=== PATIENT | male | born 1965 | race African-American/Black ===

== ENCOUNTER 2019-10-06 20:26 | Inpatient (IN) | payer OTHER ==
[~2019-10-06] VITALS: Ht 165.1 cm; Wt 57.2 kg
[2019-10-06] MEDS ORDERED: LEVETIRACETAM 1000MG/100ML 100 ML IV ONE (21:00)
[2019-10-06] MEDS ORDERED: SODIUM CHLORIDE 0.9% 1,000 ML IV ONE (21:00)
[2019-10-06] MEDS ORDERED: LORAZEPAM 2MG/ML CPJ IV ONE ×2 (21:00→21:30)
[2019-10-06] MEDS ORDERED: LORAZEPAM 2MG/ML CPJ ONE ×2 (21:06→21:31)
[2019-10-06] MEDS ORDERED: PROPOFOL 200MG/20ML VIAL IV ONE (21:15)
[2019-10-06] MEDS ORDERED: MIDAZOLAM HCL 50 MG in DEXTROSE 5% WATER 40 ML IV ONE ×2 (21:30→22:00)
[2019-10-06 23:03] LABS: BASOPHILS % 0.7 % (0.0-2.0); EOSINOPHILS % 1.4 % (0.0-5.0); HEMATOCRIT. 44.9 % (42.0-52.0); HEMOGLOBIN. 15.4 g/dL (14.0-18.0); LYMPHOCYTES % 13.4 % (20.0-50.0); MEAN CORPUSCULAR HEMOGLOBIN 32.8 pg (28.0-32.0); MEAN CORPUSCULAR VOLUME 96.1 fL (80.0-94.0); MEAN PLATELET VOLUME 10.3 fl (7.4-10.4); MONOCYTES % 12.1 % (2.0-8.0); NEUTROPHILS % 72.4 % (40.0-76.0); PLATELET 291 x1000/uL (130-400); RED BLOOD CELL COUNT 4.68 mill/uL (4.7-6.1); RED CELL DISTRIBUTION WIDTH 14.7 % (11.6-14.6)
[2019-10-06] MEDS: PROPOFOL 10MG/ML 100ML 100 ML IV SCH (23:06)
[2019-10-06 23:10] LABS: CHLORIDE 106 mEq/L (98-107); CLARITY URINE CLEAR (CLEAR); COLOR URINE DK YELLOW (YELLOW); KETONES URINE 1+ (NEGATIVE); LEUKOCYTE ESTERASE URINE NEGATIVE (NEGATIVE); NITRITE URINE NEGATIVE (NEGATIVE); OCCULT BLOOD URINE NEGATIVE (NEGATIVE); PROTEIN URINE 1+ (NEGATIVE); SPECIFIC GRAVITY URINE 1.044 (1.005-1.030)
[2019-10-06 23:13] LABS: INR 0.9
[2019-10-06 23:14] LABS: ETHANOL BLOOD < 10 mg/dL
[2019-10-06 23:35] LABS: *COCAINE SCREEN URINE NEGATIVE (NEGATIVE); METHADONE URINE SCREEN NEGATIVE (NEGATIVE)
[2019-10-06 23:36] LABS: *AMPHETAMINES SCREEN URINE NEGATIVE (NEGATIVE); *BARBITURATES SCREEN URINE NEGATIVE (NEGATIVE); *BENZODIAZEPINES SCREEN URINE NEGATIVE (NEGATIVE); CANNABINOID URINE SCREEN PRESUMTIVE POSITIVE (NEGATIVE); OPIATES URINE SCREEN NEGATIVE (NEGATIVE); PHENCYCLIDINE URINE SCREEN NEGATIVE (NEGATIVE)
[2019-10-07] VITALS (29 sets, daily range): BP systolic 103–146; BP diastolic 66–105
[2019-10-07] MEDS: PROPOFOL 10MG/ML 100ML 100 ML IV SCH (06:13)
[2019-10-07] MEDS ORDERED: MIDAZOLAM HCL 50 MG in DEXTROSE 5% WATER 40 ML IV ONE (07:30)
[2019-10-07 10:10] LABS: BG BASE EXCESS -6.2 mmol/L (-2.0-2.0); BG CARBOXYHEMOGLOBIN 0.1 % (0.5-1.5); BG FRACTION INSPIRED OXYGEN 70; BG HCO3 ACT 17.9 mmol/L (22.0-26.0); BG METHEMOGLOBIN 0.3 % (0.0-1.5); BG OXYHEMOGLOBIN 98.6 % (94.0-97.0); BG PCO2 31.7 mmHg (35.0-45.0); BG PH 7.369 (7.350-7.450); BG PO2 149.3 mmHg (75.0-100.0); BG SAMPLE SITE RIGHT BRACHIAL; BG TIDAL VOLUME(mL) 500 mL; BG TOTAL HEMOGLOBIN 14.2 g/dL (12.0-18.0); BG VENT MODE VENT - A/C; BG VENT RATE 12 set
[2019-10-07 11:13] LABS: BASOPHILS % 1.1 % (0.0-2.0); EOSINOPHILS % 1.9 % (0.0-5.0); HEMATOCRIT. 43.4 % (42.0-52.0); HEMOGLOBIN. 14.8 g/dL (14.0-18.0); LYMPHOCYTES % 8.3 % (20.0-50.0); MEAN CORPUSCULAR HEMOGLOBIN 32.9 pg (28.0-32.0); MEAN CORPUSCULAR VOLUME 96.6 fL (80.0-94.0); MEAN PLATELET VOLUME 9.4 fl (7.4-10.4); MONOCYTES % 7.4 % (2.0-8.0); NEUTROPHILS % 81.3 % (40.0-76.0); PLATELET 266 x1000/uL (130-400); RED CELL DISTRIBUTION WIDTH 14.6 % (11.6-14.6)
[2019-10-07] MEDS ORDERED: ONDANSETRON HCL 4MG/2ML INJ IV PRN (11:15)
[2019-10-07 11:20] LABS: CHLORIDE 107 mEq/L (98-107)
[2019-10-07 11:27] LABS: LDL CHOLESTEROL 124 mg/dL (5-100)
[2019-10-07 11:28] LABS: HDL CHOLESTEROL 50 mg/dL (40-59)
[2019-10-07 11:31] LABS: T4 FREE 1.16 ng/dL (0.76-1.46)
[2019-10-07 12:05] LABS: TOTAL IRON BINDING CAPACITY 290 ug/dL (250-450)
[2019-10-07] MEDS: LEVETIRACETAM 500MG/5ML CUP PO SCH ×2 (13:46→20:40)
[2019-10-07] MEDS: HEPARIN 5000 UNITS/ML VIAL SUBCUT SCH ×2 (13:46→20:41)
[2019-10-07] MEDS: DEXT 5%/0.45% NACL 1000ML 1,000 ML IV SCH ×2 (13:47→23:35)
[2019-10-07] MEDS ORDERED: IOHEXOL-350 100 ML BOTTLE ONE (13:54)
[2019-10-07] MEDS: ACETAMINOPHEN 325MG TABLET PO PRN ×2 (16:29→23:36)
[2019-10-07] MEDS ORDERED: IPRATROPIUM/ALBUTEROL 0.5-3(2.5)MG/3ML NEB HHN PRN (17:00)
[2019-10-07] MEDS: PROPOFOL 10MG/ML 100ML 100 ML IV PRN ×2 (17:34→21:47)
[2019-10-07] MEDS: FENTANYL CITRATE/PF 500 MCG in SODIUM CHLORIDE 0.9% 40 ML IV PRN (18:51)
[2019-10-07] MEDS: IPRATROPIUM/ALBUTEROL 0.5-3(2.5)MG/3ML NEB HHN SCH (21:17)
[2019-10-08] VITALS (52 sets, daily range): BP systolic 89–148; BP diastolic 54–88
[2019-10-08] MEDS: IPRATROPIUM/ALBUTEROL 0.5-3(2.5)MG/3ML NEB HHN SCH ×4 (02:25→20:27)
[2019-10-08] MEDS: PROPOFOL 10MG/ML 100ML 100 ML IV PRN ×6 (03:18→23:24)
[2019-10-08 05:36] LABS: HEMATOCRIT. 39.3 % (42.0-52.0); HEMOGLOBIN. 13.4 g/dL (14.0-18.0); MEAN CORPUSCULAR HEMOGLOBIN 32.7 pg (28.0-32.0); MEAN CORPUSCULAR VOLUME 95.6 fL (80.0-94.0); MEAN PLATELET VOLUME 9.8 fl (7.4-10.4); PLATELET 241 x1000/uL (130-400); RED BLOOD CELL COUNT 4.11 mill/uL (4.7-6.1); RED CELL DISTRIBUTION WIDTH 14.3 % (11.6-14.6)
[2019-10-08 05:45] LABS: CHLORIDE 107 mEq/L (98-107)
[2019-10-08] MEDS: FENTANYL CITRATE/PF 500 MCG in SODIUM CHLORIDE 0.9% 40 ML IV PRN ×3 (06:10→22:30)
[2019-10-08 06:13] LABS: VITAMIN B12 SERUM 312 pg/mL (211-911)
[2019-10-08] MEDS: PANTOPRAZOLE SODIUM 40 MG/VIAL IV SCH (08:42)
[2019-10-08] MEDS: HEPARIN 5000 UNITS/ML VIAL SUBCUT SCH ×2 (08:43→20:09)
[2019-10-08] MEDS: LEVETIRACETAM 500MG/5ML CUP PO SCH ×2 (08:44→20:10)
[2019-10-08 09:01] LABS: PLATELET ESTIMATE NORMAL
[2019-10-08 09:50] LABS: BG BASE EXCESS -0.8 mmol/L (-2.0-2.0); BG CARBOXYHEMOGLOBIN 0.3 % (0.5-1.5); BG DEOXYHEMOGLOBIN 9.5 % (0.0-5.0); BG FRACTION INSPIRED OXYGEN 50; BG HCO3 ACT 24.2 mmol/L (22.0-26.0); BG METHEMOGLOBIN 0.3 % (0.0-1.5); BG OXYGEN SATURATION 90.4 % (92.0-98.5); BG OXYHEMOGLOBIN 89.9 % (94.0-97.0); BG PCO2 41.3 mmHg (35.0-45.0); BG PH 7.385 (7.350-7.450); BG PO2 61.5 mmHg (75.0-100.0); BG SAMPLE SITE RIGHT BRACHIAL; BG TIDAL VOLUME(mL) 500 mL; BG VENT MODE VENT - A/C; BG VENT RATE 12 set
[2019-10-08] MEDS ORDERED: POTASSIUM CHLORIDE 20MEQ/PACKET PO SCH (10:00)
[2019-10-08] MEDS: PIPERACILLIN/TAZOBACTAM 3.375 G in DEXT 5% WATER 100 ML IV SCH ×3 (10:59→23:15)
[2019-10-08] MEDS: DEXT 5%/0.45% NACL 1000ML 1,000 ML IV SCH (14:20)
[2019-10-08] MEDS: ACETAMINOPHEN 325MG TABLET PO PRN (20:09)
[2019-10-08] MEDS: LORAZEPAM 2MG/ML CPJ IV PRN (20:09)
[2019-10-09] VITALS (47 sets, daily range): BP systolic 115–146; BP diastolic 63–89
[2019-10-09] MEDS: IPRATROPIUM/ALBUTEROL 0.5-3(2.5)MG/3ML NEB HHN SCH ×4 (01:49→20:28)
[2019-10-09] MEDS ORDERED: DIPHENHYDRAMINE HCL/ZINC ACET 28 GM CREAM TOP PRN (04:15)
[2019-10-09] MEDS: LORAZEPAM 2MG/ML CPJ IV PRN (04:17)
[2019-10-09] MEDS: FENTANYL CITRATE/PF 500 MCG in SODIUM CHLORIDE 0.9% 40 ML IV PRN ×2 (04:24→10:43)
[2019-10-09] MEDS: DIPHENHYDRAMINE 50MG CAPSULE PO PRN (04:27)
[2019-10-09] MEDS: PROPOFOL 10MG/ML 100ML 100 ML IV PRN (04:28)
[2019-10-09] MEDS: PIPERACILLIN/TAZOBACTAM 3.375 G in DEXT 5% WATER 100 ML IV SCH ×3 (05:41→17:12)
[2019-10-09] MEDS: DEXT 5%/0.45% NACL 1000ML 1,000 ML IV SCH ×2 (05:42→17:50)
[2019-10-09 06:01] LABS: HEMATOCRIT. 39.4 % (42.0-52.0); HEMOGLOBIN. 13.4 g/dL (14.0-18.0); MEAN CORPUSCULAR HEMOGLOBIN 32.8 pg (28.0-32.0); MEAN CORPUSCULAR VOLUME 96.3 fL (80.0-94.0); PLATELET 231 x1000/uL (130-400); RED BLOOD CELL COUNT 4.09 mill/uL (4.7-6.1); RED CELL DISTRIBUTION WIDTH 14.3 % (11.6-14.6)
[2019-10-09 06:09] LABS: CHLORIDE 107 mEq/L (98-107)
[2019-10-09] MEDS ORDERED: CALCIUM GLUCONATE 1,000 MG in DEXT 5% WATER 90 ML IV NR (07:30)
[2019-10-09] MEDS ORDERED: DEXTROSE 50% WATER 50ML SYRINGE IV PRN (07:30)
[2019-10-09] MEDS: PANTOPRAZOLE SODIUM 40 MG/VIAL IV SCH (08:21)
[2019-10-09] MEDS: LEVETIRACETAM 500MG/5ML CUP PO SCH ×2 (08:22→20:34)
[2019-10-09] MEDS: HEPARIN 5000 UNITS/ML VIAL SUBCUT SCH ×2 (08:22→20:34)
[2019-10-09 09:13] LABS: BG CARBOXYHEMOGLOBIN 0.3 % (0.5-1.5); BG DEOXYHEMOGLOBIN 1.1 % (0.0-5.0); BG FRACTION INSPIRED OXYGEN 70; BG HCO3 ACT 23.5 mmol/L (22.0-26.0); BG METHEMOGLOBIN 0.2 % (0.0-1.5); BG OXYGEN SATURATION 98.9 % (92.0-98.5); BG OXYHEMOGLOBIN 98.4 % (94.0-97.0); BG PCO2 42.6 mmHg (35.0-45.0); BG PH 7.359 (7.350-7.450); BG PO2 163.7 mmHg (75.0-100.0); BG SAMPLE SITE RIGHT BRACHIAL; BG TIDAL VOLUME(mL) 500 mL; BG TOTAL HEMOGLOBIN 12.7 g/dL (12.0-18.0); BG VENT MODE VENT - A/C; BG VENT RATE 12 set
[2019-10-09] MEDS ORDERED: MIDAZOLAM HCL 50 MG in DEXTROSE 5% WATER 40 ML IV PRN (10:15)
[2019-10-09] MEDS: QUETIAPINE FUMARATE 25MG TABLET PO SCH ×2 (11:11→20:34)
[2019-10-09] MEDS: MIDAZOLAM HCL 100 MG in DEXT 5% WATER 80 ML IV PRN ×2 (14:06→23:51)
[2019-10-09 14:14] LABS: PLATELET ESTIMATE NORMAL
[2019-10-09] MEDS: FENTANYL CITRATE/PF 1,000 MCG in SODIUM CHLORIDE 0.9% 80 ML IV PRN (14:48)
[2019-10-09] MEDS: ACETAMINOPHEN 325MG TABLET PO PRN (17:12)
[2019-10-10] VITALS (37 sets, daily range): BP systolic 113–155; BP diastolic 62–79
[2019-10-10] MEDS: PIPERACILLIN/TAZOBACTAM 3.375 G in DEXT 5% WATER 100 ML IV SCH ×4 (00:39→17:10)
[2019-10-10] MEDS: FENTANYL CITRATE/PF 1,000 MCG in SODIUM CHLORIDE 0.9% 80 ML IV PRN ×3 (00:42→20:37)
[2019-10-10] MEDS: ACETAMINOPHEN 325MG TABLET PO PRN ×2 (02:14→20:12)
[2019-10-10] MEDS: IPRATROPIUM/ALBUTEROL 0.5-3(2.5)MG/3ML NEB HHN SCH ×4 (04:52→20:03)
[2019-10-10] MEDS: DEXT 5%/0.45% NACL 1000ML 1,000 ML IV SCH (05:47)
[2019-10-10 06:05] LABS: CHLORIDE 108 mEq/L (98-107)
[2019-10-10] MEDS: LEVETIRACETAM 500MG/5ML CUP PO SCH ×2 (08:00→20:08)
[2019-10-10] MEDS: PANTOPRAZOLE SODIUM 40 MG/VIAL IV SCH (08:00)
[2019-10-10] MEDS: QUETIAPINE FUMARATE 25MG TABLET PO SCH ×2 (08:00→20:07)
[2019-10-10] MEDS: HEPARIN 5000 UNITS/ML VIAL SUBCUT SCH ×2 (08:03→20:08)
[2019-10-10] MEDS: MIDAZOLAM HCL 100 MG in DEXT 5% WATER 80 ML IV PRN ×2 (08:14→20:38)
[2019-10-10 09:39] LABS: BG BASE EXCESS -0.3 mmol/L (-2.0-2.0); BG CARBOXYHEMOGLOBIN 0.3 % (0.5-1.5); BG DEOXYHEMOGLOBIN 1.5 % (0.0-5.0); BG FRACTION INSPIRED OXYGEN 40; BG HCO3 ACT 25.1 mmol/L (22.0-26.0); BG METHEMOGLOBIN 0.5 % (0.0-1.5); BG OXYGEN SATURATION 98.5 % (92.0-98.5); BG OXYHEMOGLOBIN 97.7 % (94.0-97.0); BG PCO2 44.1 mmHg (35.0-45.0); BG PH 7.373 (7.350-7.450); BG SAMPLE SITE RIGHT RADIAL; BG TIDAL VOLUME(mL) 500 mL; BG TOTAL HEMOGLOBIN 13.1 g/dL (12.0-18.0); BG VENT MODE VENT - A/C; BG VENT RATE 12 set
[2019-10-10] MEDS: LORAZEPAM 2MG/ML CPJ IV PRN (15:27)
[2019-10-10] MEDS: DIPHENHYDRAMINE 50MG CAPSULE PO PRN (20:12)
[2019-10-11] VITALS (38 sets, daily range): BP systolic 115–160; BP diastolic 65–89
[2019-10-11] MEDS: PIPERACILLIN/TAZOBACTAM 3.375 G in DEXT 5% WATER 100 ML IV SCH ×5 (00:18→23:44)
[2019-10-11] MEDS: IPRATROPIUM/ALBUTEROL 0.5-3(2.5)MG/3ML NEB HHN SCH ×4 (01:18→20:52)
[2019-10-11 06:04] LABS: CHLORIDE 103 mEq/L (98-107)
[2019-10-11] MEDS: MIDAZOLAM HCL 100 MG in DEXT 5% WATER 80 ML IV PRN (06:23)
[2019-10-11] MEDS: FENTANYL CITRATE/PF 1,000 MCG in SODIUM CHLORIDE 0.9% 80 ML IV PRN ×2 (06:24→17:43)
[2019-10-11 07:48] LABS: HEMATOCRIT. 38.3 % (42.0-52.0); HEMOGLOBIN. 12.9 g/dL (14.0-18.0); MEAN CORPUSCULAR HEMOGLOBIN 32.5 pg (28.0-32.0); MEAN CORPUSCULAR VOLUME 96.7 fL (80.0-94.0); MEAN PLATELET VOLUME 9.6 fl (7.4-10.4); PLATELET 307 x1000/uL (130-400); RED BLOOD CELL COUNT 3.96 mill/uL (4.7-6.1); RED CELL DISTRIBUTION WIDTH 14.7 % (11.6-14.6)
[2019-10-11 07:58] LABS: CHLORIDE 104 mEq/L (98-107)
[2019-10-11] MEDS: LEVETIRACETAM 500MG/5ML CUP PO SCH ×2 (08:16→21:11)
[2019-10-11] MEDS: QUETIAPINE FUMARATE 25MG TABLET PO SCH ×2 (08:16→21:11)
[2019-10-11] MEDS: PANTOPRAZOLE SODIUM 40 MG/VIAL IV SCH (08:16)
[2019-10-11] MEDS: HEPARIN 5000 UNITS/ML VIAL SUBCUT SCH ×2 (08:20→21:11)
[2019-10-11 10:09] LABS: PLATELET ESTIMATE NORMAL
[2019-10-11] MEDS: ACETAMINOPHEN 325MG TABLET PO PRN (20:17)
[2019-10-11] MEDS: LORAZEPAM 2MG/ML CPJ IV PRN (22:11)
[2019-10-12] VITALS (43 sets, daily range): BP systolic 124–175; BP diastolic 60–97
[2019-10-12] MEDS: MIDAZOLAM HCL 100 MG in DEXT 5% WATER 80 ML IV PRN (01:21)
[2019-10-12] MEDS: IPRATROPIUM/ALBUTEROL 0.5-3(2.5)MG/3ML NEB HHN SCH ×4 (01:55→21:35)
[2019-10-12] MEDS: PIPERACILLIN/TAZOBACTAM 3.375 G in DEXT 5% WATER 100 ML IV SCH ×3 (05:13→17:20)
[2019-10-12] MEDS: FENTANYL CITRATE/PF 1,000 MCG in SODIUM CHLORIDE 0.9% 80 ML IV PRN (05:16)
[2019-10-12 06:34] LABS: BASOPHILS % 1.3 % (0.0-2.0); EOSINOPHILS % 1.7 % (0.0-5.0); HEMOGLOBIN. 12.1 g/dL (14.0-18.0); LYMPHOCYTES % 8.9 % (20.0-50.0); MEAN CORPUSCULAR HEMOGLOBIN 32.6 pg (28.0-32.0); MEAN CORPUSCULAR VOLUME 96.5 fL (80.0-94.0); MEAN PLATELET VOLUME 9.2 fl (7.4-10.4); MONOCYTES % 12.2 % (2.0-8.0); NEUTROPHILS % 75.9 % (40.0-76.0); PLATELET 349 x1000/uL (130-400); RED BLOOD CELL COUNT 3.72 mill/uL (4.7-6.1); RED CELL DISTRIBUTION WIDTH 14.3 % (11.6-14.6)
[2019-10-12 06:44] LABS: CHLORIDE 104 mEq/L (98-107)
[2019-10-12] MEDS: HEPARIN 5000 UNITS/ML VIAL SUBCUT SCH ×2 (08:10→20:45)
[2019-10-12] MEDS: QUETIAPINE FUMARATE 25MG TABLET PO SCH ×3 (08:10→21:00)
[2019-10-12] MEDS: PANTOPRAZOLE SODIUM 40 MG/VIAL IV SCH (08:10)
[2019-10-12] MEDS: LEVETIRACETAM 500MG/5ML CUP PO SCH ×3 (08:11→21:00)
[2019-10-12] MEDS ORDERED: METOPROLOL TARTRATE 25MG TABLET PO SCH ×2 (10:00→21:00)
[2019-10-12 10:06] LABS: BG CARBOXYHEMOGLOBIN 0.3 % (0.5-1.5); BG DEOXYHEMOGLOBIN 3.5 % (0.0-5.0); BG FRACTION INSPIRED OXYGEN 35; BG METHEMOGLOBIN 0.1 % (0.0-1.5); BG OXYGEN SATURATION 96.5 % (92.0-98.5); BG OXYHEMOGLOBIN 96.1 % (94.0-97.0); BG PCO2 38.3 mmHg (35.0-45.0); BG PH 7.449 (7.350-7.450); BG PO2 83.9 mmHg (75.0-100.0); BG SAMPLE SITE RIGHT RADIAL; BG TIDAL VOLUME(mL) 500 mL; BG TOTAL HEMOGLOBIN 12.3 g/dL (12.0-18.0); BG VENT MODE VENT - A/C; BG VENT RATE 12 set
[2019-10-12 12:39] LABS: BG BASE EXCESS 6.3 mmol/L (-2.0-2.0); BG CARBOXYHEMOGLOBIN 0.3 % (0.5-1.5); BG DEOXYHEMOGLOBIN 2.7 % (0.0-5.0); BG FRACTION INSPIRED OXYGEN 35; BG HCO3 ACT 31.2 mmol/L (22.0-26.0); BG OXYGEN SATURATION 97.3 % (92.0-98.5); BG PCO2 46.3 mmHg (35.0-45.0); BG PH 7.447 (7.350-7.450); BG PO2 93.5 mmHg (75.0-100.0); BG PRESSURE SUPPORT 8; BG SAMPLE SITE RIGHT RADIAL; BG TOTAL HEMOGLOBIN 12.8 g/dL (12.0-18.0); BG VENT MODE VENT - CPAP
[2019-10-12] MEDS ORDERED: ACETAMINOPHEN 650MG SUPP PR NR (16:00)
[2019-10-12] MEDS: KETOROLAC 30MG/ML VIAL IV PRN (16:43)
[2019-10-12] MEDS ORDERED: METOPROLOL TARTRATE 5MG/5ML VIAL IV PRN (18:00)
[2019-10-12] MEDS ORDERED: METOPROLOL TARTRATE 5MG/5ML VIAL IV NR (18:00)
[2019-10-12] MEDS: DIPHENHYDRAMINE 50MG CAPSULE PO PRN (20:44)
[2019-10-12] MEDS: LORAZEPAM 2MG/ML CPJ IV PRN (22:08)
[2019-10-13] VITALS (31 sets, daily range): BP systolic 108–156; BP diastolic 53–83
[2019-10-13] MEDS: IPRATROPIUM/ALBUTEROL 0.5-3(2.5)MG/3ML NEB HHN SCH ×2 (01:20→08:40)
[2019-10-13] MEDS ORDERED: METOPROLOL TARTRATE 5MG/5ML VIAL IV PRN (02:00)
[2019-10-13] MEDS: ACETAMINOPHEN 325MG TABLET PO PRN (03:31)
[2019-10-13] MEDS: DIPHENHYDRAMINE 50MG CAPSULE PO PRN (05:12)
[2019-10-13 06:15] LABS: HEMATOCRIT. 34.8 % (42.0-52.0); MEAN CORPUSCULAR HEMOGLOBIN 32.9 pg (28.0-32.0); MEAN CORPUSCULAR VOLUME 95.4 fL (80.0-94.0); PLATELET 439 x1000/uL (130-400); RED BLOOD CELL COUNT 3.65 mill/uL (4.7-6.1); RED CELL DISTRIBUTION WIDTH 14.1 % (11.6-14.6)
[2019-10-13 06:47] LABS: CHLORIDE 105 mEq/L (98-107)
[2019-10-13 08:55] LABS: PLATELET ESTIMATE SLIGHTLY INCREASED
[2019-10-13] MEDS: LEVETIRACETAM 500MG/5ML CUP PO SCH ×2 (09:00→20:56)
[2019-10-13] MEDS: QUETIAPINE FUMARATE 25MG TABLET PO SCH ×2 (09:00→20:57)
[2019-10-13] MEDS: HEPARIN 5000 UNITS/ML VIAL SUBCUT SCH ×2 (09:48→20:57)
[2019-10-13] MEDS: PANTOPRAZOLE SODIUM 40 MG/VIAL IV SCH (09:48)
[2019-10-13] MEDS: METOPROLOL TARTRATE 5MG/5ML VIAL IV SCH ×2 (10:18→20:58)
[2019-10-13] MEDS ORDERED: SENNOSIDES/DOCUSATE SOD 8.6/50MG TABLET PO PRN (12:00)
[2019-10-13] MEDS ORDERED: BISACODYL 10MG SUPP PR PRN (12:00)
[2019-10-13] MEDS: MAGNESIUM HYDROXIDE 400MG/5ML 30ML UDC PO PRN (13:29)
[2019-10-13] MEDS: KETOROLAC 30MG/ML VIAL IV PRN (20:57)
[2019-10-14] VITALS (12 sets, daily range): BP systolic 119–156; BP diastolic 59–98
[2019-10-14] MEDS: ACETAMINOPHEN 325MG TABLET PO PRN (00:54)
[2019-10-14] MEDS: KETOROLAC 30MG/ML VIAL IV PRN (06:52)
[2019-10-14] MEDS: LEVETIRACETAM 500MG/5ML CUP PO SCH ×2 (08:21→21:06)
[2019-10-14] MEDS: HEPARIN 5000 UNITS/ML VIAL SUBCUT SCH ×2 (08:21→21:06)
[2019-10-14] MEDS: PANTOPRAZOLE SODIUM 40 MG/VIAL IV SCH (08:21)
[2019-10-14] MEDS: METOPROLOL TARTRATE 5MG/5ML VIAL IV SCH (08:21)
[2019-10-14] MEDS: QUETIAPINE FUMARATE 25MG TABLET PO SCH ×2 (08:21→21:06)
[2019-10-14] MEDS ORDERED: METOPROLOL TARTRATE 5MG/5ML VIAL IV SCH (14:00)
[2019-10-14] MEDS: RISPERIDONE 1MG TABLET PO SCH ×2 (14:03→21:07)
[2019-10-14] MEDS: CITALOPRAM HYDROBROMIDE 10MG TABLET PO SCH (14:04)
[2019-10-14] MEDS: CARVEDILOL 3.125 MG TABLET PO SCH ×2 (14:04→21:07)
[2019-10-14 16:14] LABS: HEMATOCRIT. 35.9 % (42.0-52.0); HEMOGLOBIN. 12.4 g/dL (14.0-18.0); MEAN CORPUSCULAR HEMOGLOBIN 32.8 pg (28.0-32.0); MEAN CORPUSCULAR VOLUME 94.7 fL (80.0-94.0); MEAN PLATELET VOLUME 8.1 fl (7.4-10.4); PLATELET 573 x1000/uL (130-400); RED BLOOD CELL COUNT 3.79 mill/uL (4.7-6.1); RED CELL DISTRIBUTION WIDTH 14.3 % (11.6-14.6)
[2019-10-14 16:24] LABS: CHLORIDE 108 mEq/L (98-107)
[2019-10-14 16:55] LABS: PLATELET ESTIMATE INCREASED
[2019-10-14] MEDS: LORAZEPAM 2MG/ML CPJ IV PRN (21:06)
[2019-10-14] MEDS: HYDRALAZINE 20MG/ML VIAL IV PRN (21:29)
[2019-10-15] VITALS (10 sets, daily range): BP systolic 112–156; BP diastolic 43–106
[2019-10-15] MEDS: LORAZEPAM 2MG/ML CPJ IV PRN (03:51)
[2019-10-15] MEDS: KETOROLAC 30MG/ML VIAL IV PRN ×2 (03:52→10:14)
[2019-10-15 06:26] LABS: CHLORIDE 111 mEq/L (98-107)
[2019-10-15 06:35] LABS: BASOPHILS % 1.1 % (0.0-2.0); HEMATOCRIT. 33.1 % (42.0-52.0); HEMOGLOBIN. 11.5 g/dL (14.0-18.0); LYMPHOCYTES % 18.3 % (20.0-50.0); MEAN CORPUSCULAR HEMOGLOBIN 32.9 pg (28.0-32.0); MEAN CORPUSCULAR VOLUME 95.2 fL (80.0-94.0); MEAN PLATELET VOLUME 8.1 fl (7.4-10.4); MONOCYTES % 13.9 % (2.0-8.0); NEUTROPHILS % 64.7 % (40.0-76.0); PLATELET 554 x1000/uL (130-400); RED BLOOD CELL COUNT 3.48 mill/uL (4.7-6.1); RED CELL DISTRIBUTION WIDTH 14.4 % (11.6-14.6)
[2019-10-15] MEDS: PANTOPRAZOLE SODIUM 40 MG/VIAL IV SCH (08:33)
[2019-10-15] MEDS: LEVETIRACETAM 500MG/5ML CUP PO SCH ×2 (08:33→21:19)
[2019-10-15] MEDS: QUETIAPINE FUMARATE 25MG TABLET PO SCH (08:34)
[2019-10-15] MEDS: HEPARIN 5000 UNITS/ML VIAL SUBCUT SCH ×2 (08:34→21:20)
[2019-10-15] MEDS: CARVEDILOL 3.125 MG TABLET PO SCH (08:35)
[2019-10-15] MEDS: RISPERIDONE 1MG TABLET PO SCH ×2 (08:35→21:20)
[2019-10-15] MEDS: CITALOPRAM HYDROBROMIDE 10MG TABLET PO SCH (10:13)
[2019-10-15] MEDS ORDERED: CARVEDILOL 3.125 MG TABLET PO NR (10:15)
[2019-10-15] MEDS ORDERED: RISPERIDONE 1MG TABLET PO SCH (21:00)
[2019-10-15] MEDS: CARVEDILOL 6.25 MG TABLET PO SCH (21:20)
[2019-10-15] MEDS: DIPHENHYDRAMINE 50MG CAPSULE PO PRN (23:33)
[2019-10-16] VITALS (13 sets, daily range): BP systolic 106–163; BP diastolic 54–83
[2019-10-16] MEDS: KETOROLAC 30MG/ML VIAL IV PRN ×3 (05:28→22:33)
[2019-10-16 05:39] LABS: CHLORIDE 111 mEq/L (98-107)
[2019-10-16 06:32] LABS: HEMATOCRIT. 38.4 % (42.0-52.0); HEMOGLOBIN. 13.2 g/dL (14.0-18.0); MEAN CORPUSCULAR HEMOGLOBIN 32.8 pg (28.0-32.0); MEAN CORPUSCULAR VOLUME 95.5 fL (80.0-94.0); MEAN PLATELET VOLUME 8.4 fl (7.4-10.4); PLATELET 655 x1000/uL (130-400); RED BLOOD CELL COUNT 4.02 mill/uL (4.7-6.1); RED CELL DISTRIBUTION WIDTH 14.4 % (11.6-14.6)
[2019-10-16] MEDS: PANTOPRAZOLE SODIUM 40 MG/VIAL IV SCH (08:48)
[2019-10-16] MEDS: LEVETIRACETAM 500MG/5ML CUP PO SCH ×2 (08:49→21:19)
[2019-10-16] MEDS: RISPERIDONE 1MG TABLET PO SCH ×2 (08:49→21:19)
[2019-10-16] MEDS: DOCUSATE SODIUM 100MG CAPSULE PO PRN (08:49)
[2019-10-16] MEDS: HEPARIN 5000 UNITS/ML VIAL SUBCUT SCH ×2 (08:50→21:20)
[2019-10-16] MEDS: CARVEDILOL 6.25 MG TABLET PO SCH (09:07)
[2019-10-16 11:37] LABS: PLATELET ESTIMATE INCREASED
[2019-10-16] MEDS: HYDRALAZINE 20MG/ML VIAL IV PRN (14:19)
[2019-10-16] MEDS: DIPHENHYDRAMINE 50MG CAPSULE PO PRN (15:33)
[2019-10-16] MEDS: CARVEDILOL 12.5MG TABLET PO SCH (21:21)
[2019-10-17] VITALS (12 sets, daily range): BP systolic 96–133; BP diastolic 38–73
[2019-10-17] MEDS: DIPHENHYDRAMINE 50MG CAPSULE PO PRN (05:08)
[2019-10-17 07:23] LABS: HEMATOCRIT. 35.4 % (42.0-52.0); HEMOGLOBIN. 12.2 g/dL (14.0-18.0); MEAN CORPUSCULAR HEMOGLOBIN 32.9 pg (28.0-32.0); MEAN CORPUSCULAR VOLUME 95.6 fL (80.0-94.0); MEAN PLATELET VOLUME 7.9 fl (7.4-10.4); PLATELET 688 x1000/uL (130-400); RED CELL DISTRIBUTION WIDTH 14.5 % (11.6-14.6)
[2019-10-17 08:01] LABS: CHLORIDE 112 mEq/L (98-107)
[2019-10-17] MEDS: LEVETIRACETAM 500MG/5ML CUP PO SCH ×2 (09:35→21:03)
[2019-10-17] MEDS: PANTOPRAZOLE SODIUM 40 MG/VIAL IV SCH (09:36)
[2019-10-17] MEDS: KETOROLAC 30MG/ML VIAL IV PRN (09:36)
[2019-10-17] MEDS: HEPARIN 5000 UNITS/ML VIAL SUBCUT SCH ×2 (09:36→21:03)
[2019-10-17] MEDS: RISPERIDONE 1MG TABLET PO SCH ×2 (09:37→21:05)
[2019-10-17] MEDS: CARVEDILOL 12.5MG TABLET PO SCH ×2 (09:37→21:05)
[2019-10-17] MEDS ORDERED: LORAZEPAM 2MG/ML CPJ IV PRN (12:30)
[2019-10-17 14:01] LABS: PLATELET ESTIMATE INCREASED
[2019-10-17] MEDS: HYDROCODONE/ACETAMINOPHEN 5/325MG TABLET PO PRN ×2 (16:40→21:05)
[2019-10-18] VITALS (12 sets, daily range): BP systolic 96–126; BP diastolic 47–87
[2019-10-18] MEDS: ACETAMINOPHEN 325MG TABLET PO PRN (01:53)
[2019-10-18 06:21] LABS: HEMOGLOBIN. 11.7 g/dL (14.0-18.0); MEAN CORPUSCULAR HEMOGLOBIN 33.1 pg (28.0-32.0); MEAN CORPUSCULAR VOLUME 95.9 fL (80.0-94.0); MEAN PLATELET VOLUME 8.2 fl (7.4-10.4); PLATELET 721 x1000/uL (130-400); RED BLOOD CELL COUNT 3.54 mill/uL (4.7-6.1); RED CELL DISTRIBUTION WIDTH 14.6 % (11.6-14.6)
[2019-10-18 07:28] LABS: CHLORIDE 109 mEq/L (98-107)
[2019-10-18] MEDS: FAMOTIDINE 20MG/2ML VIAL IV SCH ×2 (08:23→21:27)
[2019-10-18] MEDS: RISPERIDONE 1MG TABLET PO SCH ×2 (08:23→21:27)
[2019-10-18] MEDS: LEVETIRACETAM 500MG/5ML CUP PO SCH ×2 (08:23→21:27)
[2019-10-18] MEDS: CARVEDILOL 12.5MG TABLET PO SCH ×2 (08:24→21:28)
[2019-10-18] MEDS: HEPARIN 5000 UNITS/ML VIAL SUBCUT SCH ×2 (08:24→21:28)
[2019-10-18] MEDS: HYDROCODONE/ACETAMINOPHEN 5/325MG TABLET PO PRN ×2 (09:30→18:43)
[2019-10-18 17:21] LABS: PLATELET ESTIMATE INCREASED
[2019-10-19] VITALS (8 sets, daily range): BP systolic 80–136; BP diastolic 45–71
[2019-10-19 08:21] LABS: BASOPHILS % 1.2 % (0.0-2.0); EOSINOPHILS % 2.2 % (0.0-5.0); HEMATOCRIT. 35.4 % (42.0-52.0); LYMPHOCYTES % 22.2 % (20.0-50.0); MEAN CORPUSCULAR HEMOGLOBIN 32.8 pg (28.0-32.0); MEAN CORPUSCULAR VOLUME 96.5 fL (80.0-94.0); MEAN PLATELET VOLUME 8.8 fl (7.4-10.4); NEUTROPHILS % 67.4 % (40.0-76.0); PLATELET 739 x1000/uL (130-400); RED BLOOD CELL COUNT 3.67 mill/uL (4.7-6.1); RED CELL DISTRIBUTION WIDTH 14.7 % (11.6-14.6)
[2019-10-19] MEDS: ACETAMINOPHEN 325MG TABLET PO PRN (08:26)
[2019-10-19] MEDS: HEPARIN 5000 UNITS/ML VIAL SUBCUT SCH (08:28)
[2019-10-19] MEDS: FAMOTIDINE 20MG/2ML VIAL IV SCH (08:28)
[2019-10-19] MEDS: RISPERIDONE 1MG TABLET PO SCH (08:29)
[2019-10-19] MEDS: LEVETIRACETAM 500MG/5ML CUP PO SCH (08:29)
[2019-10-19] MEDS: CARVEDILOL 12.5MG TABLET PO SCH (08:29)
[2019-10-19 08:40] LABS: CHLORIDE 110 mEq/L (98-107)
[2019-10-19] MEDS ORDERED: SENN-3 PO (13:47)
[2019-10-19] MEDS ORDERED: COR12 PO (13:47)
[2019-10-19] MEDS ORDERED: RISP1 PO (13:47)
[2019-10-19] MEDS ORDERED: KEPP500 MT (13:47)
[2019-10-19] MEDS: MAGNESIUM HYDROXIDE 400MG/5ML 30ML UDC PO PRN (16:03)
[2019-10-19] MEDS: DOCUSATE SODIUM 100MG CAPSULE PO PRN (16:03)
== END 2019-10-19 17:54 | disposition home or self-care (01) | DRG 720 ==
LOC: ER 20:26 → MICUSO 10-07 00:40 → CVICU 10-07 13:26 → 5EST 10-13 17:13
PROVIDERS: ADMIT Internal Medicine; ATTEND Internal Medicine
PROC: 0BH17EZ Insertion of Endotracheal Airway into Trachea, Via Natural or Artificial Opening (ICD-10-PCS; principal; 2019-10-09)
PROC: 5A1955Z Respiratory Ventilation, Greater than 96 Consecutive Hours (ICD-10-PCS; 2019-10-09)
DX: A41.9 Sepsis, unspecified organism (principal); J69.0 Pneumonitis due to inhalation of food and vomit; G92 Toxic encephalopathy; K85.90 Acute pancreatitis without necrosis or infection, unspecified; J96.01 Acute respiratory failure with hypoxia; J96.02 Acute respiratory failure with hypercapnia; N17.9 Acute kidney failure, unspecified; E44.0 Moderate protein-calorie malnutrition; C76.2 Malignant neoplasm of abdomen; E16.2 Hypoglycemia, unspecified; E83.51 Hypocalcemia; G40.901 Epilepsy, unspecified, not intractable, with status epilepticus; L29.9 Pruritus, unspecified; E87.5 Hyperkalemia; F12.10 Cannabis abuse, uncomplicated; F23 Brief psychotic disorder; R21 Rash and other nonspecific skin eruption; R00.0 Tachycardia, unspecified; F32.9 Major depressive disorder, single episode, unspecified; F41.9 Anxiety disorder, unspecified; I42.1 Obstructive hypertrophic cardiomyopathy; I10 Essential (primary) hypertension; Z59.0 Homelessness; Z85.89 Personal history of malignant neoplasm of other organs and systems; Z85.028 Personal history of other malignant neoplasm of stomach; Z79.899 Other long term (current) drug therapy; Z68.21 Body mass index [BMI] 21.0-21.9, adult; Z86.73 Personal history of transient ischemic attack (TIA), and cerebral infarction without residual deficits
CPT/HCPCS: 36415; 36600; 71045; 74178; 80048; 80053; 80061; 80076; 80305; 80320; 81003; 82375; 82607; 82805; 82962; 83540; 83550; 83605; 83735; 84145; 84439; 84443; 84478; 84484; 85025; 87070; 92610; 93005; 93306; 94002; 94003; 94640; 96365; 97116; 97162; 97166; 97530; 97535; 99291; C9113; J0360; J0610; J1644; J1885; J1953; J2060; J2250; J2405; J2543; J2704; J3010; J3490; J7030; J7050; J7060; Q0163; Q9967; G0480

== ENCOUNTER 2020-06-29 15:18 | Emergency (ER) | payer OTHER ==
[~2020-06-29] VITALS: Ht 170.2 cm; Wt 52.2 kg
[~2020-06-29 15:18] MED LIST: COR12 PO; KEPP500 MT; ONDA4TAB5 MT; RISP1 PO; SENN-3 PO
[2020-06-29 15:23] VITALS: BP 167/99
[2020-06-29] MEDS ORDERED: ONDANSETRON HCL 4MG/2ML INJ IV STA (15:55)
[2020-06-29] MEDS ORDERED: SODIUM CHLORIDE 0.9% 1,000 ML IV ONE (16:00)
[2020-06-29] MEDS ORDERED: MORPHINE SULFATE 4 MG/ML CPJ (NOT FOR IM USE) IV ONE (16:00)
[2020-06-29 16:11] LABS: CLARITY URINE CLEAR (CLEAR); COLOR URINE YELLOW (YELLOW); KETONES URINE TRACE (NEGATIVE); LEUKOCYTE ESTERASE URINE NEGATIVE (NEGATIVE); NITRITE URINE NEGATIVE (NEGATIVE); OCCULT BLOOD URINE NEGATIVE (NEGATIVE); PROTEIN URINE 1+ (NEGATIVE); SPECIFIC GRAVITY URINE 1.023 (1.005-1.030)
[2020-06-29 16:13] LABS: BASOPHILS % 1.2 % (0.0-2.0); EOSINOPHILS % 2.2 % (0.0-5.0); HEMATOCRIT. 43.1 % (42.0-52.0); HEMOGLOBIN. 14.6 g/dL (14.0-18.0); LYMPHOCYTES % 26.1 % (20.0-50.0); MEAN CORPUSCULAR HEMOGLOBIN 31.8 pg (28.0-32.0); MEAN CORPUSCULAR VOLUME 94.2 fL (80.0-94.0); MONOCYTES % 8.7 % (2.0-8.0); NEUTROPHILS % 61.8 % (40.0-76.0); PLATELET 412 x1000/uL (130-400); RED BLOOD CELL COUNT 4.58 mill/uL (4.7-6.1); RED CELL DISTRIBUTION WIDTH 14.2 % (11.6-14.6)
[2020-06-29 16:14] LABS: PROTHROMBIN TIME 10.1 sec (9.6-11.0)
[2020-06-29 16:16] LABS: CHLORIDE 110 mEq/L (98-107)
[2020-06-29 16:22] LABS: ETHANOL BLOOD < 10 mg/dL
[2020-06-29 16:25] LABS: *AMPHETAMINES SCREEN URINE NEGATIVE (NEGATIVE); *BARBITURATES SCREEN URINE NEGATIVE (NEGATIVE); *BENZODIAZEPINES SCREEN URINE PRESUMTIVE POSITIVE (NEGATIVE); *COCAINE SCREEN URINE NEGATIVE (NEGATIVE); CANNABINOID URINE SCREEN PRESUMTIVE POSITIVE (NEGATIVE); METHADONE URINE SCREEN NEGATIVE (NEGATIVE); OPIATES URINE SCREEN NEGATIVE (NEGATIVE)
[2020-06-29 16:26] LABS: PHENCYCLIDINE URINE SCREEN NEGATIVE (NEGATIVE)
[2020-06-29] MEDS ORDERED: MORPHINE SULFATE 2 MG/ML CPJ (NOT FOR IM USE) IV ONE (16:45)
== END 2020-06-29 17:58 | disposition home or self-care (01) ==
LOC: ER 15:31
DX: R11.10 Vomiting, unspecified (principal); R10.9 Unspecified abdominal pain; Z87.19 Personal history of other diseases of the digestive system; I10 Essential (primary) hypertension; Z86.73 Personal history of transient ischemic attack (TIA), and cerebral infarction without residual deficits; Z79.899 Other long term (current) drug therapy; E87.8 Other disorders of electrolyte and fluid balance, not elsewhere classified
CPT/HCPCS: 36415; 71045; 80053; 80305; 80320; 81003; 83690; 84484; 85025; 85610; 93005; 96361; 96374; 96375; 96376; 99285; J2270; J2405; J7030; G0480

== ENCOUNTER 2020-06-30 13:58 | Emergency (ER) | payer OTHER ==
[~2020-06-30] VITALS: Ht 170.2 cm; Wt 56.4 kg
[2020-06-30] MEDS ORDERED: VISCOUS LIDOCAINE 2% 15 ML UDC PO STA (14:28)
[2020-06-30] MEDS ORDERED: ACETAMINOPHEN 325MG TABLET PO STA (14:28)
[2020-06-30] MEDS ORDERED: DICYCLOMINE 10 MG/5 ML ORAL SYR PO STA (14:28)
[2020-06-30] MEDS ORDERED: MAGNESIUM/ALUMINUM HYDROXIDE/SIMETHICONE 30ML UDC PO STA (14:28)
[2020-06-30 16:01] LABS: BASOPHILS % 1.2 % (0.0-2.0); HEMATOCRIT. 37.4 % (42.0-52.0); HEMOGLOBIN. 12.8 g/dL (14.0-18.0); LYMPHOCYTES % 19.8 % (20.0-50.0); MEAN CORPUSCULAR VOLUME 93.6 fL (80.0-94.0); MEAN PLATELET VOLUME 8.5 fl (7.4-10.4); MONOCYTES % 8.8 % (2.0-8.0); NEUTROPHILS % 69.2 % (40.0-76.0); PLATELET 388 x1000/uL (130-400); RED CELL DISTRIBUTION WIDTH 13.9 % (11.6-14.6)
[2020-06-30 16:10] LABS: CHLORIDE 110 mEq/L (98-107)
[2020-06-30 17:30] VITALS: BP 127/64
== END 2020-06-30 17:45 | disposition home or self-care (01) ==
LOC: ER 13:58
DX: R10.33 Periumbilical pain (principal); M25.562 Pain in left knee; M25.561 Pain in right knee; G89.11 Acute pain due to trauma; I10 Essential (primary) hypertension; V49.49XA Driver injured in collision with other motor vehicles in traffic accident, initial encounter; Y93.89 Activity, other specified; Y92.488 Other paved roadways as the place of occurrence of the external cause; N20.0 Calculus of kidney; K86.1 Other chronic pancreatitis; Z86.73 Personal history of transient ischemic attack (TIA), and cerebral infarction without residual deficits; Z85.9 Personal history of malignant neoplasm, unspecified
CPT/HCPCS: 36415; 73560; 74176; 80053; 85025; 93005; 99285